=== PATIENT | female | born 1995 | race Caucasian/White ===

== ENCOUNTER → 2017-11-30 | Outpatient (CLI) | payer MEDICAID ==
--- NOTE | 2017-11-30 16:39 | RADIOLOGY REPORT (SQ) ---
EXAM DESCRIPTION: U/S [id number] TRNABD 1GES W/ODOP COMPLETED DATE/TIME: 11/30/2017 3:52 pm REASON FOR STUDY: Z34.81 ENCOUNTER FOR SUPRVSN OF NORMAL , FIRST TRIMESTER Z34.81 ENCOUNTE R FOR SUPRVSN OF NORMAL , FIRST TRIM COMPARISON: None. TECHNIQUE: Transabdominal static and realtime grayscale images acquired of the pelvis. Additional se lected spectral and color Doppler images recorded. All images stored on PACs. bHCG: Not available. LIMITATIONS: None. FINDINGS: FETUS: Living intrauterine . EGA: 10 weeks 4 days ALAINA: 06/24/2018 FHR: 171 beats per minute. SUBCHORIONIC BLEED: Yes. SIZE OF BLEED: 0.6 x 1.3 x 2.0 cm UTERUS: No masses. No anomalies. CERVICAL LENGTH: 3.2 cm Closed. RIGHT ADNEXA: Ovary not identified. No adnexal free fluid. No adnexal masses. LEFT ADNEXA: Normal ovary with normal vascular flow. No adnexal free fluid. No adnexal masses. FREE FLUID: None. OTHER: No other significant finding. IMPRESSION: LIVING INTRAUTERINE . EGA 10 weeks 4 days. Small subchronic hemorrhage. Trimester of : First - 0 to 13 weeks. TECHNICAL DOCUMENTATION: JOB ID: [id number] [employer]- All Rights Reserved
== END ==
LOC: RAD 15:17
PROVIDERS: ATTEND Nurse Practitioner Women's Health
DX: Z34.81 Encounter for supervision of other normal pregnancy, first trimester (principal)
CPT/HCPCS: 76801

== ENCOUNTER 2018-05-29 12:11 | Inpatient (IN) | payer MEDICAID ==
[2018-06-18] MEDS ORDERED: RINGERS SOLUTION,LACTATED 1,000 ML IV PRN (21:34)
[2018-06-18] MEDS ORDERED: DINOPROSTONE 10 MG VAGINAL INSERT.SR PV PRN (21:34)
[2018-06-18 21:56] LABS: APPEARANCE,URINE CLOUDY; BILIRUBIN,URINE SMALL (NEGATIVE); GLUCOSE, URINE NEGATIVE (NEGATIVE); KETONES,URINE NEGATIVE (NEGATIVE); LEUKOCYTE ESTERASE,URINE SMALL (NEGATIVE); NITRITE,URINE NEGATIVE (NEGATIVE); PROTEIN,URINE 30 mg/dL (NEGATIVE); URINE SPECIFIC GRAVITY 1.026
[2018-06-18 21:58] LABS: COLOR,URINE YELLOW
[2018-06-18 22:09] LABS: HEMOGLOBIN 10.6 g/dL (12.0-15.5); RED BLOOD COUNT 3.55 10^6/uL (3.72-5.28); TOTAL CELLS COUNTED % (AUTO) 100 %
[2018-06-18 22:20] LABS: ABSOLUTE LYMPHOCYTES (AUTO) 0.7 10^3/uL (0.5-4.7); ABSOLUTE MONOCYTES (AUTO) 1.4 10^3/uL (0.1-1.4); ABSOLUTE NEUT (AUTO) 6.7 10^3/uL (1.7-8.2); BASOPHILS % (AUTO) 0.2 % (0-2); HEMATOCRIT 31.6 % (36.0-47.0); LYMPHOCYTES % (AUTO) 8.5 % (13-45); MEAN CORPUSCULAR HEMOGLOBIN 29.9 pg (27.0-33.4); MEAN CORPUSCULAR HGB CONC 33.6 g/dL (32.0-36.0); MEAN CORPUSCULAR VOLUME 89 fl (80-97); MONOCYTES % (AUTO) 15.4 % (3-13); PLATELET COUNT 106 10^3/uL (150-450); RED CELL DISTRIBUTION WIDTH 13.8 % (11.5-14.0); SEGMENTED NEUTROPHILS % (AUTO) 75.9 % (42-78); WHITE BLOOD COUNT 8.8 10^3/uL (4.0-10.5)
[2018-06-18 22:37] LABS: URINE AMPHETAMINES SCREEN NEGATIVE; URINE BARBITURATES SCREEN NEGATIVE; URINE BENZODIAZEPINES SCREEN NEGATIVE; URINE COCAINE SCREEN NEGATIVE; URINE MARIJUANA (THC) SCREEN NEGATIVE; URINE METHADONE SCREEN NEGATIVE; URINE PHENCYCLIDINE SCREEN NEGATIVE
[2018-06-18] MEDS ORDERED: DINOPROSTONE 10 MG VAGINAL INSERT.SR ONE (22:37)
[2018-06-18] MEDS ORDERED: ACETAMINOPHEN 325 MG TABLET PO ONE (22:45)
[2018-06-18] MEDS ORDERED: ZOLPIDEM TARTRATE 5 MG TABLET PO ONE (22:45)
[2018-06-18] MEDS ORDERED: RINGERS SOLUTION,LACTATED 300 ML IV ONE (22:45)
[2018-06-19] MEDS ORDERED: ZOLPIDEM TARTRATE 5 MG TABLET ONE (03:08)
--- NOTE | 2018-06-19 11:29 | L&D Progress Notes ---
PROGRESS NOTES Datetime Report Generated by CPN: 06/19/2018 11:29 PROGRESS NOTE Impression: Reactive Non Stress Test Plan: Continue Present Management; Induction; Cervical Ripening Vital Signs : Reviewed; Within Normal Limits Comment: IOL for Polyhydramnios. Pt doing well this morning, remains comfortable. S/p Cervidil for cervical ripening. VE per RN with no change noted. Pt to get up to eat and shower. Will eat some lunch and then continue with IOL. MEMBRANES Membranes: Intact FETUS A Monitoring: External US FHR Category: Category I SIGNATURE SIGNATURE: [id number] Assignment: Cosign Signature: with User ID: [email or web address], Addendum/Amendment: Send note to Dr Landon to sign : with User ID: [email or web address], Addendum/Amendment: Send note to Dr Landon to sign
[2018-06-19] MEDS ORDERED: OXYTOCIN/NORMAL SALINE 20 UNIT/1,000 ML RTUINJ IV PRN (13:02)
[2018-06-19] MEDS ORDERED: PENICILLIN G POTASSIUM 5,000,000 UNIT in DEXTROSE 5%-WATER 100 ML IV ONE (13:10)
[2018-06-19] MEDS ORDERED: LIDOCAINE 1% INJ-PF (10 MG/ML) 30 ML SDV ONE ×2 (13:50→21:01)
[2018-06-19] MEDS ORDERED: OXYTOCIN 10 UNIT/ML VIAL ONE (13:50)
[2018-06-19] MEDS ORDERED: MISOPROSTOL 0.2 MG TABLET ONE ×2 (13:50→21:01)
[2018-06-19] MEDS ORDERED: OXYTOCIN/NORMAL SALINE 0 UNIT/0 ML RTUINJ ONE (13:51)
[2018-06-19] MEDS ORDERED: PENICILLIN G-K 5 MILLION UNIT VIAL ONE ×3 (13:51→23:12)
--- NOTE | 2018-06-19 15:49 | Admission Physical ---
Datetime Report Generated by CPN: 06/19/2018 15:49 CURRENT ADMISSION Chief Complaint: Other Chief Complaint Other: polyhydramnios Indication for Induction: Polyhydramnios Admit Impression : Term, Intrauterine Admit Plan: Admit to Unit; Initiate Labor Induction Protocol ALLERGIES Medication Allergies: No Medication Allergies: No Known Allergies (06/18/2018) Latex: No Latex Allergies Food Allergies: none Environmental Allergies: none OBSTETRICAL HISTORY EDC: 06/24/2018 00:00 : 3 Para: 2 Term: 2 : 0 SAB: 0 IAB: 0 Ectopic: 0 Livin Cesareans: 0 VBACs: 0 Multiple Births: 0 Gestational Diabetes: No Rh Sensitization: No Incompetent Cervix: No ADAM: No Infertility: No ART Treatment: No Uterine Anomaly: No IUGR: No Hx Previous C/S: No Macrosomia: No Hx Loss/Stillborn: No PIH: No Hx : No Placenta Previa/Abruption: No Depression/PP Depression: No PTL/PROM: No Post Hemorrhage: No Current Procedures: Ultrasound; NST Obstetrical History Comments: G1 - G2 - G3 - CURRENT, POLYHYDRAMNIOS SEE RECORDS Alcohol: No Marijuana : No Cocaine: No Other Illicit Drugs: No Cigarettes: Never Smoker. [id number] MEDICAL HISTORY Diabetes: No Blood Transfusion: No Pulmonary Disease (Asthma, TB): No Breast Disease: No Hypertension: No Policy Adviser Surgery: No Heart Disease: No Hosp/Surgery: Yes Autoimmune Disorder: No Anesthetic Complications: No Kidney Disease: No Abnormal Pap Smear: No Neuro/Epilepsy: No Psychiatric Disorders: No Other Medical Diseases: Yes Hepatitis/Liver Disease: No Significant Family History: No Varicosities/Phlebitis: No Trauma/Violence : No Thyroid Dysfunction: No Medical History Comments: PARAMYTONIA CONGENITA, childbirth INFECTIOUS HISTORY Gonorrhea: No Genital Herpes: No Chlamydia: No Tuberculosis: No Syphilis: No Hepatitis: No HIV/AIDS Exposure: No Rash or Viral Illness: No HPV: No PHYSICAL EXAM General: Normal HEENT: Normal Neurologic: Normal Thyroid: Normal Heart: Normal Lungs: Normal Breast: Normal Abdomen: Normal Genitourinary Exam: Normal Extremities: Normal Pelvic Type: Adequate Physical Exam Comments: Cervidil removed at 1130 with minimal cervical change. Pt allowed to eat and shower. Cervical exam at 1347, 3/50%/-3. will start pitocin. Vital Signs: Reviewed VAGINAL EXAM Dilatation: 1 Effacement: 50% Station: -3 Contraction Comments: irregular MEMBRANES Membranes: Intact FETUS A EGA: 39.2 Monitoring: External US FHR- Baseline: 120s Accelerations: 15X15 Decelerations: None FHR Category: Category I Presentation: Vertex Admit Comment: Cervidil placed at 2235 on 06/18/18 PLANS FOR LABOR AND DELIVERY Labor and Delivery: None Pain Management: Epidural Feeding Preference: Both Benefit of Breast Feed Discussed: Yes Circumcision: N/A INFORMED CONSENT Signature: with User ID: [email or web address]
--- NOTE | 2018-06-19 16:19 | L&D Progress Notes ---
PROGRESS NOTES Datetime Report Generated by CPN: 06/19/2018 16:19 PROGRESS NOTE Impression: Reassuring Heart Rate Procedures: Sterile Vag Exam Plan: Continue Present Management; Induction Vital Signs : Reviewed; Within Normal Limits Comment: Pitocin infusing at 8 mu/min. Pt remains comfortable. Antibiotic prophylaxis started due to +GBS status. Pt does plan on an epidural when she becomes uncomfortable. Position changes encouraged. Attending MD is Dr Landon VAGINAL EXAM Dilatation: 1 Effacement: 50% Station: -3 Contractions: q 2-3 Contractions: irregular MEMBRANES Membranes: Intact Membranes: Intact FETUS A Monitoring: External US Decelerations: None FHR Category: Category I Presentation: Vertex FETUS C SIGNATURE: ,[id number] SIGNATURE: ,[id number] Assignment: Cosign Signature: with User ID: [email or web address], Addendum/Amendment: Dr Younger to sign note : with User ID: [email or web address], Addendum/Amendment: Dr Landon to sign note
[2018-06-19] MEDS ORDERED: PENICILLIN G POTASSIUM 2,500,000 UNIT in DEXTROSE 5%-WATER 50 ML IV SCH (17:11)
[2018-06-19] MEDS ORDERED: EPHEDRINE SULFATE INJ 50 MG/1 ML AMPULE ONE ×2 (21:01→22:21)
[2018-06-19] MEDS ORDERED: OXYTOCIN/NORMAL SALINE 20 UNIT/1,000 ML RTUINJ ONE (21:01)
[2018-06-19] MEDS ORDERED: FENTANYL/BUPIVACAINE/NS/PF 300 MCG/150 ML RTUINJ EPI ONE (21:02)
[2018-06-19] MEDS ORDERED: BUPIVACAINE HCL 0.5 % INJ/PF 30 ML SDV ONE (21:02)
[2018-06-20] MEDS ORDERED: LIDOCAINE 2% INJ-PF (20 MG/ML) 10 ML AMPUL ONE (00:59)
[2018-06-20] MEDS ORDERED: ACETAMINOPHEN WITH CODEINE #3 TABLET PO PRN (02:41)
[2018-06-20] MEDS ORDERED: BENZOCAINE/MENTHOL AEROSOL SPRAY 56 ML TOP PRN (02:41)
[2018-06-20] MEDS ORDERED: MEASLES,MUMPS&RUBELLA VACC/PF 0.5 ML VIAL SUBCUT PRN (02:41)
[2018-06-20] MEDS ORDERED: DIBUCAINE 1% OINTMENT 28 GM TP PRN (02:41)
[2018-06-20] MEDS ORDERED: DIPH/PERTUSS(ACELL)/TETANUS VAC/PF 0.5 ML SYR (>=10YO) IM PRN (02:41)
[2018-06-20] MEDS ORDERED: OXYTOCIN/NORMAL SALINE 20 UNIT/1,000 ML RTUINJ IV PRN (02:41)
[2018-06-20] MEDS ORDERED: ZOLPIDEM TARTRATE 5 MG TABLET PO PRN (02:41)
[2018-06-20] MEDS ORDERED: IBUPROFEN 800 MG TABLET ONE (03:11)
--- NOTE | 2018-06-20 05:09 | Delivery Summary ---
Del Sum A-C Datetime Report Generated by CPN: 06/20/2018 05:09 DELIVERY PERSONNEL DELIVERY PERSONNEL: [id number] Delivery Doctor:: Dr. Landon Labor and Delivery Nurse:: Renetta Macedo RNinspector weights and measures Nurse:: Ashlie Turner RN Yard Person/[employer]: Chris Ertsanjeev, [employer] MATERNAL INFORMATION Delivery Anesthesia: Epidural Medications After Delivery: Pitocin Drip 20 Units/1000ml NSS Estimated Blood Loss (ml): 100 ml Maternal Complications: None Provider Comments: There was of a viable female at 0220 with an OA presentation; APGARS 7@1, 8@9; taken to nursery prior to weight. Pt sustained no lacerations LABOR SUMMARY EDC: 06/24/2018 00:00 No. Babies in Womb: 1 Attempted: No Labor Anesthesia: Epidural LABOR INFORMATION Reason for Induction: Polyhydramnios Onset of Labor: 06/19/2018 20:50 Complete Dilatation: 06/20/2018 02:13 Cervical Ripening Agents: Cervidil (Annotations: Removed by RN at this time. ) Oxytocin: Induction Group B Beta Strep: Positive Antibiotics # of Doses: 3 Antibiotics Time of Last Dose: 2206 Name of Antibiotic Given: PCN Steroids Given: None Reason Steroids Not Administered: Not Applicable MEMBRANES Membranes Rupture Method: Artificial Rupture of Membranes: 06/19/2018 20:50 Length of Rupture (hr): 5.50 Amniotic Fluid Color: Clear Amniotic Fluid Amount: Moderate Amniotic Fluid Odor: Normal STAGES OF LABOR Stage 1 hr: 5 Stage 1 min: 23 Stage 2 hr: 0 Stage 2 min: 7 Stage 3 hr: 0 Stage 3 min: 6 Total Time in Labor hr: 5 Total Time in Labor min: 36 VAGINAL DELIVERY Episiotomy: None Laceration #1: None Laceration Extension #1: N/A Laceration Repair: Not Applicable Sponge Count Correct: N/A Sharps Count Correct: N/A CSECTION DELIVERY Primary Indication: N/A Secondary Indication: N/A CSection Incidence: N/A Labor: N/A Elective: N/A CSection Incision: N/A BABY A INFORMATION Delivery Date/Time: 06/20/2018 02:20 Method of Delivery: Vaginal Born in Route : No : N/A Forceps: N/A Vacuum Extraction: N/A Shoulder Dystocia : No PRESENTATION/POSITION BABY A Presentation: Cephalic Cephalic Presentation: Vertex Vertex Position: Left Occipital Anterior Breech Presentation: N/A PLACENTA INFORMATION BABY A Placenta Delivery Time : 06/20/2018 02:26 Placenta Method of Delivery: Spontaneous Placenta Status: Delivered SCORES BABY A Heart Rate 1 min: >100 bpm Resp Effort 1 min: Slow, Irregular Reflex Irritability 1 min: Cough or Sneeze or Pulls Away Muscle Tone 1 min: Active Motion Color 1 min: Blue/Pale Resuscitation Effort 1 min: Tactile Stimulation SCORE 1 MIN: 7 Heart Rate 5 min: >100 bpm Resp Effort 5 min: Good Cry Reflex Irritability 5 min: Cough or Sneeze or Pulls Away Muscle Tone 5 min: Active Motion Color 5 min: Blue/Pale Resuscitation Effort 5 min: Tactile Stimulation SCORE 5 MIN: 8 INFANT INFORMATION BABY A Gestational Age at Delivery: 39.3 Gestational Status: Full Term- 39- 40.6 Weeks Infant Outcome : Liveborn Infant Condition : Stable Infant Sex: Female IDENTIFICATION BABY A Infant Verification Date/Time: 06/20/2018 02:33 ID Band Number: [id number] Mother's Name Verified: Yes Infant RN Verifying : CMartine Turner, DEYSI. Fartun Macedo RN. WEIGHT/LENGTH BABY A Infant Birthweight (gm): 4370 Infant Weight (lb): 9 Weight (oz): 10 Infant Length (in): 20.25 Infant Length (cm): 51.44 CORD INFORMATION BABY A No. Cord Vessels: 3 Nuchal Cord : N/A Cord Blood Taken: Yes-For Eval (Mom's Blood Type - or O+) Suction: Mouth; Nose ASSESSMENT BABY A Infant Complications: Polyhydramnios Physical Findings at Delivery: Molding of the Head Respirations: Grunting Skin to Skin: Yes Retail Coordinator/ALS Called : No Care By: Jay Turner, DEYSI Rivera, RN Transferred To: [facility] BABY B INFORMATION : N/A SIGNATURES Signature: with User ID: [email or web address]
[2018-06-20] MEDS: ACETAMINOPHEN WITH CODEINE #3 TABLET PO PRN (08:39)
[2018-06-20] MEDS: IBUPROFEN 800 MG TABLET PO SCH ×3 (09:29→22:00)
[2018-06-20] MEDS: FERROUS SULFATE 325 MG TABLET PO SCH ×2 (09:31→18:15)
[2018-06-20] MEDS: PRENATAL VITAMIN W DHA CAPSULE PO SCH (09:31)
[2018-06-20] MEDS: SENNOSIDES/DOCUSATE 8.6-50 MG 1 EACH TABLET PO SCH (09:31)
[2018-06-20] MEDS: DOCUSATE SODIUM 100 MG CAPSULE PO SCH ×2 (09:31→18:15)
[2018-06-21] MEDS: IBUPROFEN 800 MG TABLET PO SCH ×3 (05:38→22:00)
[2018-06-21 07:40] LABS: HEMATOCRIT 26.7 % (36.0-47.0); MEAN CORPUSCULAR HEMOGLOBIN 30.2 pg (27.0-33.4); MEAN CORPUSCULAR HGB CONC 33.8 g/dL (32.0-36.0); MEAN CORPUSCULAR VOLUME 89 fl (80-97); RED BLOOD COUNT 2.99 10^6/uL (3.72-5.28); RED CELL DISTRIBUTION WIDTH 14.3 % (11.5-14.0); WHITE BLOOD COUNT 9.7 10^3/uL (4.0-10.5)
[2018-06-21 08:27] LABS: PLATELET COUNT 89 10^3/uL (150-450)
--- NOTE | 2018-06-21 09:06 | PDOC PROGRESS REPORT ---
Subjective-OB Progress Note for:: 06/21/18 Subjective: Doing well, pt wanting to go home today, has low platelet, will repeayt, scant bleeding, voiding, eating well Physical Exam (OB) Vital Signs: Temp Pulse Resp BP Pulse Ox 97.8 F 64 18 111/64 98 06/21/18 08:03 06/21/18 08:03 06/21/18 08:03 06/21/18 08:03 06/21/18 08:03 Intake & Output 06/20/18 06/21/18 06/22/18 06:59 06:59 06:59 Intake Total 100 240 Balance 100 240 - PIH/Pre-Eclampsia DTR's: 1 + Clonus: Negative Headache: Absent Epigastric Pain: No Visual Changes: No - Lochia Lochia Amount: Scant < 10 ml Lochia Color: Rubra/Red - Abdomen Description: Soft, Round Hernia Present: No Fundal Description: Firm Fundal Height: u/u - u/2 Objective-Diagnostic Laboratory: 06/21/18 06:57 06/21/18 06:57 WBC 9.7 RBC 2.99 L Hgb 9.0 L Hct 26.7 L MCV 89 MCH 30.2 MCHC 33.8 RDW 14.3 H Plt Count 89 L Assessment and Plan(PN) - Assessment and Plan (1) GBS (group B Streptococcus carrier), +RV culture, currently Is this a current diagnosis for this admission?: Yes (2) Normal vaginal delivery Is this a current diagnosis for this admission?: Yes - Time Spent with Patient Time with patient: Less than 15 minutes Medications reviewed and adjusted accordingly: Yes - Disposition Anticipated Discharge: Home Within: within 24 hours
--- NOTE | 2018-06-21 09:09 | PDOC DISCHARGE SUMMARY ---
Final Diagnosis Discharge Date: 06/21/18 - Final Diagnosis (1) GBS (group B Streptococcus carrier), +RV culture, currently Is this a current diagnosis for this admission?: Yes (2) Normal vaginal delivery Is this a current diagnosis for this admission?: Yes Discharge Data - Discharge Medication Home Medications: No122/Iron/Folic Acid [ Multi Tablet] 1 each PO DAILY 06/18/18 Reason(s) for Admission: Onset of Labor, Group B Strep Positive Procedures: NST, Ultrasound - Diagnosis Test Laboratory: Temp Pulse Resp BP Pulse Ox 97.8 F 64 18 111/64 98 06/21/18 08:03 06/21/18 08:03 06/21/18 08:03 06/21/18 08:03 06/21/18 08:03 06/18/18 06/18/18 06/21/18 21:25 21:58 06:57 RBC 3.55 L 2.99 L Hgb 10.6 L 9.0 L Hct 31.6 L 26.7 L Urine Opiates Screen NEGATIVE - Discharge information/Instructions Discharge Activity: Activity As Tolerated, No Lifting Over 10 Pounds, Pelvic Rest Discharge Diet: As Tolerated, Regular Disposition: HOME, SELF-CARE Follow up with: [facility] in: 1, Weeks - repeat platelets today before discharge
[2018-06-21] MEDS: SENNOSIDES/DOCUSATE 8.6-50 MG 1 EACH TABLET PO SCH (09:32)
[2018-06-21] MEDS: PRENATAL VITAMIN W DHA CAPSULE PO SCH (09:32)
[2018-06-21] MEDS: FERROUS SULFATE 325 MG TABLET PO SCH ×2 (09:32→17:44)
[2018-06-21] MEDS: DOCUSATE SODIUM 100 MG CAPSULE PO SCH ×2 (09:32→17:44)
[2018-06-21 11:42] LABS: PLATELET COUNT 102 10^3/uL (150-450)
[2018-06-21] MEDS: ACETAMINOPHEN WITH CODEINE #3 TABLET PO PRN (17:46)
[2018-06-21 20:49] VITALS: BP 126/61
[2018-06-22] MEDS: IBUPROFEN 800 MG TABLET PO SCH (06:00)
== END 2018-06-22 09:00 | disposition home or self-care (01) | DRG 775 ==
LOC: LR 06-18 21:18 → 2S 06-20 04:28
PROVIDERS: ADMIT Obstetrics & Gynecology; ATTEND Obstetrics & Gynecology
PROC: 10E0XZZ Delivery of Products of Conception, External Approach (ICD-10-PCS; principal; 2018-06-20)
PROC: 4A1HXCZ Monitoring of Products of Conception, Cardiac Rate, External Approach (ICD-10-PCS; 2018-06-20)
DX: O40.3XX0 Polyhydramnios, third trimester, not applicable or unspecified (principal); O99.824 Streptococcus B carrier state complicating childbirth; Z3A.39 39 weeks gestation of pregnancy; Z37.0 Single live birth
CPT/HCPCS: 36415; 80307; 81005; 85025; 85027; 85049; 86592; 86850; 86900; 86901; J2540; J2590; J3010; J3490